=== PATIENT | female | born 1985 | race Caucasian/White ===

== ENCOUNTER 2018-03-15 06:34 | Day surgery (SDC) | payer OTHER ==
[~2018-03-15] VITALS: Ht 167.6 cm; Wt 79.4 kg
[2018-03-15 07:08] VITALS: BP 125/69
[2018-03-15 13:45] VITALS: BP 108/61
== END 2018-03-15 11:40 | disposition home or self-care (01) ==
LOC: DS 06:34 → OR 12:00 → DS 12:00
DX: T83.89XA Other specified complication of genitourinary prosthetic devices, implants and grafts, initial encounter (principal); N92.1 Excessive and frequent menstruation with irregular cycle; G43.909 Migraine, unspecified, not intractable, without status migrainosus; Z98.890 Other specified postprocedural states
CPT/HCPCS: J2405; J2704; J3010; J7120